=== PATIENT | female | born 1990 | race Caucasian/White ===

== ENCOUNTER 2021-05-20 11:44 | Outpatient (REF) | payer OTHER, SELFPAY ==
[2021-05-20 13:44] LABS: Hematocrit 44.3 % (37.0-47.0); Hemoglobin 14.6 g/dl (12.0-16.0); Mean Corpuscular Hemoglobin 30.7 pg (27.0-33.0); Mean Corpuscular Volume 93.3 fL (80.0-98.0); Mean Platelet Volume 11.2 fL (9.4-12.3); Platelet Count 325 X10*3/uL (160-400); Red Blood Count 4.75 X10*6/uL (4.20-5.50); Red Cell Distribution Width 11.9 % (11.0-16.0); White Blood Count 8.1 X10*3/uL (4.8-10.8)
[2021-05-20 13:57] LABS: Alanine Aminotransferase 167 U/L (0-31); Albumin Level 4.2 g/dL (3.5-5.0); Alkaline Phosphatase 55 U/L (39-117); Anion Gap 11 (12-20); Aspartate Amino Transferase 59 U/L (5-31); Bilirubin Total 1.6 mg/dL (0.0-1.0); Blood Urea Nitrogen 12 mg/dL (9-16); Calcium 10.2 mg/dL (8.4-10.2); Carbon Dioxide 30 mmol/L (22-29); Chloride 101 mmol/L (96-108); Cholesterol 240 mg/dL; Estimated Glomerular Filt Rate > 60; Glucose Fasting 102 mg/dL (60-99); HDL Cholesterol 72 mg/dL; LDL Cholesterol Calculated 122 mg/dl; Potassium 5.2 mmol/L (3.3-5.1); Sodium 137 mmol/L (135-145); Total Protein 7.3 g/dL (6.5-8.0); Triglycerides 234 mg/dL
[2021-05-20 14:18] LABS: TSH reflex Free T4 0.97 uIU/mL (0.32-4.0)
== END 2021-05-20 11:45 | disposition home or self-care (01) ==
LOC: HO.HMGCLDS 11:44
PROVIDERS: Visit Provider Internal Medicine
DX: Z00.00 Encounter for general adult medical examination without abnormal findings (principal); R21 Rash and other nonspecific skin eruption
CPT/HCPCS: 36415; 80053; 80061; 84443; 85027

== ENCOUNTER 2021-09-16 10:13 | Outpatient (REF) | payer OTHER, SELFPAY ==
[2021-09-16 11:56] LABS: Alanine Aminotransferase 58 U/L (0-31); Albumin Level 4.1 g/dL (3.5-5.0); Alkaline Phosphatase 55 U/L (39-117); Aspartate Amino Transferase 24 U/L (5-31); Bilirubin Direct 0.2 mg/dL (0.0-0.5); Bilirubin Total 0.4 mg/dL (0.0-1.0)
[2021-09-16 12:18] LABS: HBc Num1 0.08 S/CO (0.00-0.79); HBsAGNum1 0.16 S/CO (0.00-0.99); Hepatitis B Core Antibody Nonreactive (Nonreactive); Hepatitis B Surface Antigen Negative (Negative); ~Hepatitis B Surface Antibody REACTIVE (Nonreactive); ~Hepatitis C Antibody Nonreactive (Nonreactive)
== END 2021-09-16 10:14 | disposition home or self-care (01) ==
LOC: HO.HMGCLDS 10:13
PROVIDERS: PCP Internal Medicine; Visit Provider Internal Medicine
DX: R79.89 Other specified abnormal findings of blood chemistry (principal)
CPT/HCPCS: 36415; 80076; 86704; 86706; 86803; 87340

== ENCOUNTER 2022-01-21 09:53 | Outpatient (REF) | payer OTHER, SELFPAY ==
[2022-01-21 12:16] LABS: Estimated Average Glucose 100 mg/dL; Hemoglobin A1c % 5.1 %
[2022-01-21 12:43] LABS: Alanine Aminotransferase 65 U/L (0-31); Alkaline Phosphatase 53 U/L (39-117); Anion Gap 15 (12-20); Aspartate Amino Transferase 41 U/L (5-31); Bilirubin Total 0.6 mg/dL (0.0-1.0); Blood Urea Nitrogen 9 mg/dL (9-16); Calcium 9.5 mg/dL (8.4-10.2); Carbon Dioxide 24 mmol/L (22-29); Chloride 104 mmol/L (96-108); Cholesterol 213 mg/dL; Estimated Glomerular Filt Rate > 60; Glucose Fasting 102 mg/dL (60-99); HDL Cholesterol 66 mg/dL; LDL Cholesterol Calculated 92 mg/dl; Potassium 4.7 mmol/L (3.3-5.1); Sodium 138 mmol/L (135-145); Total Protein 6.7 g/dL (6.5-8.0); Triglycerides 278 mg/dL
[2022-01-21 13:14] LABS: TSH reflex Free T4 1.71 uIU/mL (0.32-4.0)
== END 2022-01-21 09:54 | disposition home or self-care (01) ==
LOC: HO.HMGCLDS 09:53
PROVIDERS: PCP Internal Medicine; Visit Provider Internal Medicine
DX: R63.5 Abnormal weight gain (principal); R79.89 Other specified abnormal findings of blood chemistry; F41.9 Anxiety disorder, unspecified
CPT/HCPCS: 36415; 80053; 80061; 83036; 84443

== ENCOUNTER 2022-02-13 09:07 | Outpatient (REF) | payer OTHER, SELFPAY ==
--- NOTE | ~2022-02-13 | US_ITS ---
EXAMINATION: US ABDOMEN COMPLETE CLINICAL INFORMATION: Elevated LFTs. COMPARISON: None TECHNIQUE: Real-time imaging of the abdominal viscera. FINDINGS: PANCREAS: Normal. ABDOMINAL AORTA: The proximal, mid, and distal segments are normal in caliber. INFERIOR VENA CAVA: Visualized portions are normal. LIVER: The liver is enlarged in size with increased echogenicity.There are areas of focal fatty sparing. The liver contour is normal. No solid focal hepatic lesions seen. There is no intrahepatic biliary duct dilatation seen. GALLBLADDER: Gallbladder wall thickness is 0.15 cm. The gallbladder is physiologically distended without evidence of stones, sludge, polyps, wall thickening or pericholecystic fluid. COMMON BILE DUCT: Normal in caliber measuring 0.37 cm in diameter. RIGHT KIDNEY: Normal. No hydronephrosis. No renal calculi or focal parenchymal lesions. The kidney measures 11.3 cm in maximum dimension. LEFT KIDNEY: Normal. No hydronephrosis. No renal calculi or focal parenchymal lesions. The kidney measures 11.9 cm in maximum dimension. SPLEEN: Normal. The spleen measures 11.9 cm in maximum dimension. FREE FLUID: None. US/US abdomen complete IMPRESSION: 1. Diffuse echogenic liver with areas of focal fatty sparing. Mild hepatomegaly. 2. The rest of the abdominal ultrasound is unremarkable.
[2022-02-13 11:42] LABS: Alanine Aminotransferase 75 U/L (0-31); Alkaline Phosphatase 52 U/L (39-117); Aspartate Amino Transferase 35 U/L (5-31); Bilirubin Direct 0.2 mg/dL (0.0-0.5); Bilirubin Total 0.4 mg/dL (0.0-1.0); Cholesterol 199 mg/dL; HDL Cholesterol 65 mg/dL; LDL Cholesterol Calculated 116 mg/dl; Total Protein 6.4 g/dL (6.5-8.0); Triglycerides 94 mg/dL
== END 2022-02-13 09:08 | disposition home or self-care (01) ==
LOC: HO.HMGCX 09:07
PROVIDERS: PCP Internal Medicine; Visit Provider Internal Medicine
DX: R79.89 Other specified abnormal findings of blood chemistry (principal); E78.5 Hyperlipidemia, unspecified
CPT/HCPCS: 36415; 76700; 80061; 80076; 82550

== ENCOUNTER 2022-05-26 10:14 | Outpatient (REF) | payer OTHER, SELFPAY ==
[2022-05-26 13:07] LABS: Alanine Aminotransferase 133 U/L (0-31); Alkaline Phosphatase 54 U/L (39-117); Aspartate Amino Transferase 59 U/L (5-31); Bilirubin Direct 0.3 mg/dL (0.0-0.5); Bilirubin Total 0.9 mg/dL (0.0-1.0); Total Protein 6.5 g/dL (6.5-8.0)
[2022-05-27 17:58] LABS: Ceruloplasmin 37 mg/dL (18-53)
[2022-05-29 22:33] LABS: Liver Kidney Microsomal Ab <=20.0 U (<=20.0)
[2022-06-07 10:33] LABS: A1A Clinical Indication NG; A1A Referring Physician NG
== END 2022-05-26 10:15 | disposition home or self-care (01) ==
LOC: HO.HMGCLDS 10:14
PROVIDERS: PCP Internal Medicine; Visit Provider Internal Medicine
DX: R79.89 Other specified abnormal findings of blood chemistry (principal)
CPT/HCPCS: 36415; 80076; 81256; 82104; 82390; 86376

== ENCOUNTER 2022-07-14 09:29 | Outpatient (REF) | payer OTHER, SELFPAY ==
[2022-07-14 11:21] LABS: Estimated Average Glucose 100 mg/dL; Hemoglobin A1c % 5.1 %
[2022-07-14 11:40] LABS: Alanine Aminotransferase 30 U/L (0-31); Albumin Level 3.9 g/dL (3.5-5.0); Alkaline Phosphatase 53 U/L (39-117); Aspartate Amino Transferase 17 U/L (5-31); Bilirubin Direct 0.2 mg/dL (0.0-0.5); Cholesterol 186 mg/dL; HDL Cholesterol 63 mg/dL; LDL Cholesterol Calculated 93 mg/dl; Total Protein 6.4 g/dL (6.5-8.0); Triglycerides 151 mg/dL
[2022-07-14 12:04] LABS: Thyroid Stimulating Hormone 1.55 uIU/mL (0.32-4.0)
[2022-07-16 14:24] LABS: Alpha 1 Anti-trypsin 239 mg/dL (83-199)
[2022-07-16 14:38] LABS: Mitochondrial Antibodies NEGATIVE (NEGATIVE)
[2022-07-17 11:58] LABS: Anti Nuclear Antibody Screen NEGATIVE (NEGATIVE)
[2022-07-17 22:54] LABS: Smooth Muscle Antibody <20 U (<20)
== END 2022-07-14 09:30 | disposition home or self-care (01) ==
LOC: HO.LAB 09:29
PROVIDERS: PCP Internal Medicine; Visit Provider Physician Assistant
DX: R74.8 Abnormal levels of other serum enzymes (principal); K59.09 Other constipation; R74.01 Elevation of levels of liver transaminase levels; R10.11 Right upper quadrant pain; K76.0 Fatty (change of) liver, not elsewhere classified; R79.89 Other specified abnormal findings of blood chemistry
CPT/HCPCS: 36415; 80061; 80076; 82103; 83036; 84443; 86015; 86038; 86039; 86255; 86256

== ENCOUNTER → 2022-07-28 09:45 | Outpatient (BNVA) | payer OTHER, SELFPAY | PROVIDERS: PCP Internal Medicine; Visit Provider Physician Assistant | DX: Z13.89 Encounter for screening for other disorder (principal) ==

== ENCOUNTER 2023-02-10 09:00 | Outpatient (REF) | payer OTHER, SELFPAY ==
[2023-02-10 09:31] LABS: MANUAL DIFF FLAG NO
[2023-02-10 10:15] LABS: Basophils Percent Auto 0.6 % (0-2); Eosinophils Absolute Auto 0.1 X10*3/uL (0.0-0.4); Eosinophils Percent Auto 1.8 % (0-4); Hematocrit 40.6 % (37.0-47.0); Hemoglobin 13.5 g/dl (12.0-16.0); Imm Gran Abs Auto 0.02 X10*3/uL (0.00-0.03); Imm Gran Pct Auto 0.3 % (0.0-0.4); Lymphocytes Absolute Auto 1.6 X10*3/uL (1.2-4.9); Lymphocytes Percent Auto 22.5 % (20-40); Mean Corpuscular HGB Conc 33.3 g/dl (31.0-35.0); Mean Corpuscular Hemoglobin 30.6 pg (27.0-33.0); Mean Corpuscular Volume 92.1 fL (80.0-98.0); Mean Platelet Volume 11.1 fL (9.4-12.3); Monocytes Absolute Auto 0.5 X10*3/uL (0.1-1.2); Monocytes Percent Auto 6.7 % (2-11); Neutrophils Absolute Auto 4.9 x10*3/uL (2.0-8.3); Neutrophils Percent Auto 68.1 % (45-73); Platelet Count 262 X10*3/uL (160-400); Red Blood Count 4.41 X10*6/uL (4.20-5.50); Red Cell Distribution Width 11.4 % (11.0-16.0); White Blood Count 7.2 X10*3/uL (4.8-10.8)
[2023-02-10 10:54] LABS: Alanine Aminotransferase 26 U/L (0-31); Albumin Level 4.3 g/dL (3.5-5.0); Alkaline Phosphatase 53 U/L (39-117); Anion Gap 12 (12-20); Aspartate Amino Transferase 19 U/L (5-31); Bilirubin Total 1.5 mg/dL (0.0-1.0); Blood Urea Nitrogen 11 mg/dL (9-16); Calcium 9.7 mg/dL (8.4-10.2); Carbon Dioxide 24 mmol/L (22-29); Chloride 106 mmol/L (96-108); Estimated Glomerular Filt Rate > 60; Glucose Random 101 mg/dL (60-115); Potassium 4.4 mmol/L (3.3-5.1); Sodium 138 mmol/L (135-145)
[2023-02-12 10:38] LABS: Alpha 1 Anti-trypsin 136 mg/dL (83-199)
== END 2023-02-10 09:01 | disposition home or self-care (01) ==
LOC: HO.LAB 09:00
PROVIDERS: Visit Provider Physician Assistant
DX: R74.01 Elevation of levels of liver transaminase levels (principal); R79.89 Other specified abnormal findings of blood chemistry
CPT/HCPCS: 36415; 80053; 82103; 85025

== ENCOUNTER 2023-07-03 12:53 | Outpatient (AMB) | payer OTHER, SELFPAY ==
--- NOTE | 2023-07-03 12:53 | A.OFFPC_ITS ---
Vital Signs 07/03/23 12:58 Height 5 ft 8 in Weight 208 lb BMI 31.6 BP 118/60 Blood Pressure Location Rt brachial Position Sitting Pulse 65 Pulse Source Pulse Oximeter Pulse Oximetry (%) 100 Oxygen Delivery Method Room Air Intake Visit Reasons: ? chronic disease Intake Note: pt is here for c/o rectal bleeding, also 7 weeks Data Assistant Required: No Allergies amoxicillin Allergy (Unknown, Verified 07/03/23 13:00) rash penicillin V Allergy (Unknown, Verified 07/03/23 13:00) rash Medication List - Last Reconciled 07/03/23 by Ayala Johnson MD No Known Home Meds Tobacco use date assessed: 07/03/23 Dental Screening Dental Screen Date: 07/03/23 Did you have a dental visit in the last 12 months?: Yes Did you have a dental problem in the last 6 months where you did not have access to dental care?: No Was dental information given to patient?: Patient has dentist HPI ? chronic disease HPI Details Patient presents complaining of having 2 episodes of fresh blood per rectum about 3 weeks ago. Patient denies abdominal or rectal pain, change in bowel movement habits, fever chills. She did not notice stool mixed with the blood. Patient went to the emergency room and had anoscopic exam which showed possible internal hemorrhoid. Patient denies any recurrent bleeding for 3 weeks. She is 7 weeks . [facility] Medical History Elevated LFTs Anxiety Rash Annual physical exam Surgical History S/P foot surgery, left Family History Father Diabetes Mother Breast cancer Social History Housing: House Patient Tobacco Use Status: Never used Tobacco e-Cigarette/Vaping Use: Never Used Current occupational status: employed Cognitive needs: No Hearing needs: No Vision needs: Yes Questionnaire PHQ-9 Over the last 2 weeks, how often have you been bothered by any of the following problems? 1. Little interest or pleasure in doing things: several days 2. Feeling down, depressed, or hopeless: several days 3. Trouble falling or staying asleep, or sleeping too much: several days 4. Feeling tired or having little energy: several days 5. Poor appetite or overeating: several days 6. Feeling bad about yourself - or that you are a failure or have let yourself or your family down: not at all 7. Trouble concentrating on things, such as reading the newspaper or watching television: several days 8. Moving or speaking so slowly that other people could have noticed. Or the opposite - being so fidgety or restless that you have been moving around a lot more than usual: not at all 9. Thoughts that you would be better off or of hurting yourself in some way: not at all Total score: 6 Depression Screening Interpretation: Negative Depression Screening Done: Yes Source: Developed by Drs. Israel Wells, Ana Huitron, Subhash Sibley and colleagues, with an educational roberto from [employer]. Thrive Questionnaire Date Thrive assessed: 07/03/23 I am a: Patient What is your living situation today?: I have a steady place to live Within the past 12 months, did the food you bought not last and you didn't have the money to get more?: Never true Within the past 12 months, did you worry whether your food would run out before you got money to buy more?: Never true Do you have trouble paying for medicines?: No Do you have trouble getting transportation to medical appointments?: No Do you have trouble paying your heating and electricity bill?: No Do you have trouble taking care of your child, family member or friend?: No Do you have trouble with day-to-day activities such as bathing, preparing meals, shopping, managing finances, etc.?: No Are you currently unemployed and looking for a job?: No Are you interested in more education?: No Please select the resources that you would like help with: None Currently or been in a relationship where the following occur: no concerns reported THRIVE Score: 0 JUSTIN-7 AMB Questionnaire JUSTIN-7 Date JUSTIN - 7 assessed: 07/03/23 Feeling nervous, anxious, or on edge: 1 = Several days Not being able to stop or control worryin = Several days Worrying too much about different things: 1 = Several days Trouble relaxin = Several days Being so restless that it is hard to sit still: 1 = Several days Becoming easily annoyed or irritable: 1 = Several days Feeling afraid as if something awful might happen: 1 = Several days Total JUSTIN-7 score (0-4 normal; 5-9 mild; 10-14 moderate; 15-21 severe): 7 Source: Developed by Drs. Israel Wells, Ana Huitron, Subhash Sibley and colleagues, with an educational roberto from [employer]. JUSTIN-7 Assessment Billing JUSTIN-7 Assessment Tool: JUSTIN-7 Assessment 13003 Review of Systems Const All systems reviewed & are unremarkable except as noted in HPI and below Card Reports no additional complaints Resp Reports no additional complaints GI Reports no additional complaints Reports no additional complaints Physical exam (Primary Care) Vital Signs: Last Vital Signs Pulse 65 07/03/23 12:58 BP 118/60 07/03/23 12:58 Pulse Ox 100 07/03/23 12:58 Oxygen Delivery Method Room Air 07/03/23 12:58 BMI result Body Mass Index 31.6 Tobacco/Smoking Status: Tobacco use Status Tobacco use date assessed 07/03/23 07/03/23 13:01 Patient Tobacco Use Status Never used Tobacco 07/03/23 12:53 e-Cigarette/Vaping Use Never Used 07/03/23 12:53 PHQ-9: PHQ-9 Score PHQ-9: Total score 6 07/03/23 13:05 Depression Screening Interpretation: Negative Thrive Assessment: Date of Thrive Assessment Date Thrive assessed 07/03/23 07/03/23 13:05 Currently or been in a relationship where the following occur: no concerns reported Const General: no acute distress HENMT Head: Yes normal to inspection Resp Effort & Inspection: normal respiratory effort Auscultation: clear to auscultation bilaterally Cardio Rhythm: regular rhythm Heart sounds: S1 normal heart sound present and S2 normal heart sound present GI Inspection: Yes normal to inspection Palpation (GI): Soft to palpation Percussion: Yes normal to percussion Auscultation: normal bowel sounds Assessment and Plan Assessment & Plan Orders: Orders AMB Fecal Immunochemical Test Today Z12.11 - Encounter for screening for malignant neoplasm of colon, Z12.12 - Encounter for screening for malignant neoplasm of rectum Referrals Gastroenterology Referral K62.5 - Hemorrhage of anus and rectum Coding Level of Care Code Est Pt Level 3 (26293) Additional Codes JUSTIN-7 Assessment Billing - JUSTIN-7 Assessment Tool: JUSTIN-7 Assessment 12645 ([id number])
[2023-07-03 12:58] VITALS: BP 118/60; PULSE 65; O2SAT 100; BMI 31.6
== END 2023-07-03 13:44 | disposition home or self-care (01) ==
PROVIDERS: PCP Internal Medicine; Visit Provider Internal Medicine
DX: K62.5 Hemorrhage of anus and rectum (principal)
CPT/HCPCS: 99213

== ENCOUNTER 2023-07-08 15:26 | Outpatient (REF) | payer OTHER, SELFPAY ==
[2023-07-14 07:05] LABS: FIT Int Ctl YES; FIT1 NEGATIVE (NEGATIVE); FIT2 NEGATIVE (NEGATIVE)
== END 2023-07-08 15:27 | disposition home or self-care (01) ==
LOC: HO.LNP 15:26
PROVIDERS: Visit Provider Internal Medicine
DX: Z12.11 Encounter for screening for malignant neoplasm of colon (principal); Z12.12 Encounter for screening for malignant neoplasm of rectum
CPT/HCPCS: 82274

== ENCOUNTER 2023-10-30 09:12 | Outpatient (AMB) | payer OTHER, SELFPAY ==
[2023-10-30 09:14] VITALS: BP 106/70; PULSE 87; O2SAT 98; BMI 32.1
--- NOTE | 2023-10-30 09:14 | A.OFFPC_ITS ---
Vital Signs 10/30/23 09:14 Height 5 ft 8 in Weight 211 lb BMI 32.1 BP 106/70 Blood Pressure Location Lt brachial Position Sitting Pulse 87 Pulse Source Pulse Oximeter Pulse Oximetry (%) 98 Oxygen Delivery Method Room Air Intake Visit Reasons: Annual PE Intake Note: Pt is here today for PE. Pt states that she is . Allergies amoxicillin Allergy (Unknown, Verified 10/30/23 09:18) rash penicillin V Allergy (Unknown, Verified 10/30/23 09:18) rash Medication List - Last Reconciled 10/30/23 by Ayala Johnson MD aspirin 81 mg PO DAILY Tobacco use date assessed: 10/30/23 Dental Screening Dental Screen Date: 10/30/23 HPI Annual PE HPI Details Pt presents for PE. Patient is 5 months she denies any recurrent rectal bleeding and has an appointment scheduled with GI in January. PFSH Medical History Elevated LFTs Anxiety Rash Annual physical exam Surgical History S/P foot surgery, left Family History Father Diabetes Mother Breast cancer Social History Housing: House Patient Tobacco Use Status: Never used Tobacco e-Cigarette/Vaping Use: Never Used service: No Current occupational status: employed Cognitive needs: No Hearing needs: No Vision needs: Yes Questionnaire Thrive Questionnaire Date Thrive assessed: 07/03/23 I am a: Patient What is your living situation today?: I have a steady place to live Within the past 12 months, did the food you bought not last and you didn't have the money to get more?: Never true Within the past 12 months, did you worry whether your food would run out before you got money to buy more?: Never true Do you have trouble paying for medicines?: No Do you have trouble getting transportation to medical appointments?: No Do you have trouble paying your heating and electricity bill?: No Do you have trouble taking care of your child, family member or friend?: No Do you have trouble with day-to-day activities such as bathing, preparing meals, shopping, managing finances, etc.?: No Are you currently unemployed and looking for a job?: No Are you interested in more education?: No Please select the resources that you would like help with: None Currently or been in a relationship where the following occur: No concerns reported THRIVE Score: 0 AUDIT C Alcohol Use Questionnaire (AUDIT-C) 1. How often do you have a drink containing alcohol?: Never 2. How many drinks containing alcohol do you have on a typical day when you are drinking?: 1 or 2 3. How often do you have six or more drinks on one occasion?: Never Total Score: 0 JUSTIN-7 AMB Questionnaire JUSTIN-7 Date JUSTIN - 7 assessed: 07/03/23 Feeling nervous, anxious, or on edge: 1 = Several days Not being able to stop or control worryin = Several days Worrying too much about different things: 1 = Several days Trouble relaxin = Several days Being so restless that it is hard to sit still: 1 = Several days Becoming easily annoyed or irritable: 1 = Several days Feeling afraid as if something awful might happen: 1 = Several days Total JUSTIN-7 score (0-4 normal; 5-9 mild; 10-14 moderate; 15-21 severe): 7 Source: Developed by Drs. Israel Wells, Ana Huitron, Subhash Sibley and colleagues, with an educational roberto from [employer]. Review of Systems Const All systems reviewed & are unremarkable except as noted in HPI and below Reports no additional complaints Eyes Reports no additional complaints ENT Reports no additional complaints Card Reports no additional complaints Resp Reports no additional complaints GI Reports no additional complaints Reports no additional complaints Musc Reports no additional complaints Physical exam (Primary Care) Vital Signs: Last Vital Signs Pulse 87 10/30/23 09:14 BP 106/70 10/30/23 09:14 Pulse Ox 98 10/30/23 09:14 Oxygen Delivery Method Room Air 10/30/23 09:14 BMI result Body Mass Index 32.1 Tobacco/Smoking Status: Tobacco use Status Tobacco use date assessed 10/30/23 10/30/23 09:21 Patient Tobacco Use Status Never used Tobacco 10/30/23 09:21 e-Cigarette/Vaping Use Never Used 10/30/23 09:21 Thrive Assessment: Date of Thrive Assessment Date Thrive assessed 07/03/23 10/30/23 09:21 Currently or been in a relationship where the following occur: No concerns rep orted Const General: no acute distress HENMT Head: Yes normal to inspection General nose exam: Normal external nose present Face and sinus: Yes normal facial exam Mouth: Normal oral and palatal mucosa present Throat: Yes posterior oropharynx normal Eyes General: appearance normal, both eyes and all related structures Neck Neck: Yes no lymphadenopathy and Yes supple Resp Effort & Inspection: normal respiratory effort Auscultation: clear to auscultation bilaterally Cardio Rhythm: regular rhythm Heart sounds: S1 normal heart sound present and S2 normal heart sound present GI Inspection: Yes normal to inspection Assessment and Plan Assessment & Plan (1) Annual physical exam: Code(s): Z00.00 - Encounter for general adult medical examination without abnormal findings Plan: Well-balanced diet regular physical activity discussed with the patient. Follow-up with OBGYN (2) Anemia: Code(s): D64.9 - Anemia, unspecified Plan: Check CBC and iron count Orders: Orders Comprehensive [place]. Panel Fast Today D64.9 - Anemia, unspecified, Z00.00 - Encounter for general adult medical examination without abnormal findings Complete Blood Count Auto Diff Today D64.9 - Anemia, unspecified, Z00.00 - Encounter for general adult medical examination without abnormal findings IRON PROFILE Today D64.9 - Anemia, unspecified, Z00.00 - Encounter for general adult medical examination without abnormal findings Coding Level of Care Code Est Pt Prev Care 18-39y(33259) Diagnoses Annual physical exam Z00.00 Anemia D64.9
== END 2023-10-30 09:38 | disposition home or self-care (01) ==
LOC: HO.HMGC 09:12
PROVIDERS: PCP Internal Medicine; Visit Provider Internal Medicine
DX: Z00.00 Encounter for general adult medical examination without abnormal findings (principal); D64.9 Anemia, unspecified
CPT/HCPCS: 99395

== ENCOUNTER 2023-10-30 09:39 | Outpatient (REF) | payer OTHER, SELFPAY ==
[2023-10-30 11:19] LABS: MANUAL DIFF FLAG NO
[2023-10-30 11:21] LABS: Basophils Absolute Auto 0.1 X10*3/uL (0.0-0.2); Basophils Percent Auto 0.5 % (0-2); Eosinophils Absolute Auto 0.2 X10*3/uL (0.0-0.4); Eosinophils Percent Auto 1.5 % (0-4); Hematocrit 34.3 % (37.0-47.0); Hemoglobin 11.7 g/dl (12.0-16.0); Imm Gran Abs Auto 0.06 X10*3/uL (0.00-0.03); Imm Gran Pct Auto 0.6 % (0.0-0.4); Lymphocytes Absolute Auto 1.9 X10*3/uL (1.2-4.9); Lymphocytes Percent Auto 18.8 % (20-40); Mean Corpuscular HGB Conc 34.1 g/dl (31.0-35.0); Mean Corpuscular Hemoglobin 31.8 pg (27.0-33.0); Mean Corpuscular Volume 93.2 fL (80.0-98.0); Mean Platelet Volume 11.1 fL (9.4-12.3); Monocytes Absolute Auto 0.7 X10*3/uL (0.1-1.2); Monocytes Percent Auto 6.8 % (2-11); Neutrophils Absolute Auto 7.3 x10*3/uL (2.0-8.3); Neutrophils Percent Auto 71.8 % (45-73); Platelet Count 233 X10*3/uL (160-400); Red Blood Count 3.68 X10*6/uL (4.20-5.50); Red Cell Distribution Width 12.8 % (11.0-16.0); White Blood Count 10.2 X10*3/uL (4.8-10.8)
[2023-10-30 12:00] LABS: Alanine Aminotransferase 7 U/L (0-31); Albumin Level 3.4 g/dL (3.5-5.0); Alkaline Phosphatase 58 U/L (39-117); Anion Gap 11 (12-20); Aspartate Amino Transferase 10 U/L (5-31); Bilirubin Total 0.9 mg/dL (0.0-1.0); Blood Urea Nitrogen 9 mg/dL (9-16); Calcium 8.9 mg/dL (8.4-10.2); Carbon Dioxide 25 mmol/L (22-29); Chloride 106 mmol/L (96-108); Estimated Glomerular Filt Rate > 60; Glucose Fasting 71 mg/dL (60-99); Iron 98 mcg/dL (30-160); Percent Iron Saturation 26 % (15-50); Potassium 3.6 mmol/L (3.3-5.1); Sodium 138 mmol/L (135-145); Total Iron Binding Capacity 378 mcg/dL (228-428); Total Protein 6.4 g/dL (6.5-8.0); Unsaturated Iron Binding 280 ug/dL
== END 2023-10-30 09:40 | disposition home or self-care (01) ==
LOC: HO.HMGCLDS 09:39
PROVIDERS: PCP Internal Medicine; Visit Provider Internal Medicine
DX: Z00.00 Encounter for general adult medical examination without abnormal findings (principal); D64.9 Anemia, unspecified
CPT/HCPCS: 36415; 80053; 83540; 85025